=== PATIENT | male | born 1955 | race Two or more races ===

== ENCOUNTER 2021-10-30 15:38 | Inpatient (IN) | payer OTHER ==
[~2021-10-30] VITALS: Ht 172.7 cm; Wt 128.4 kg
--- NOTE | 2021-10-30 15:51 | NUR ---
PTE ALERTA Y ORIENTADO X3 EN AMBULANCIA EN COMPANIA DE ESCOLTA. [facility]. PTE REFIERE QUE PRESENTA PROBLEMAS PARA PODER ORINAR DESDE RAKAN EN LA TARDE. PTE SE RECIBE CON LOMELI CON HAMATURIA CON IRRIGACION CONTINUA. SE COLOCA EN LEFTY CON BARANDAS ELEVADAS.
--- NOTE | 2021-10-30 16:50 | NUR ---
SE LE ORIENTA A PTE SOBRE TRATAMIENTO A SEGUIR, EL REFIERE ENTENDER. SE LE COLECTA MUESTRAS MARTHA ORDEN MEDICA UTILIZANDO MEDIDAS ASEPTICAS.
[2021-11-01] MEDS ORDERED: FLOVENT HFA12 GM (10:53)
[2021-11-01] MEDS ORDERED: PROVENTIL S2 MG/5 ML (10:53)
[2021-11-01] MEDS ORDERED: ATORVASTATIN CA10 MG (10:53)
[2021-11-01] MEDS ORDERED: RENO CAPS SOFTGE1 MG (10:53)
[2021-11-01] MEDS ORDERED: FARXIGA10 MG (10:54)
[2021-11-01] MEDS ORDERED: MUPIROCIN15 GM (10:54)
[2021-11-01] MEDS ORDERED: MONTELUKAST SOD10 MG (10:54)
[2021-11-01] MEDS ORDERED: WIXELA 250-501 EACH (10:54)
[2021-11-01] MEDS ORDERED: ELIQUIS5 MG (10:54)
[2021-11-01] MEDS ORDERED: TAMSULOSIN HCL0.4 MG (10:54)
[2021-11-01] MEDS ORDERED: BREO ELLIPTA 21 EACH (10:54)
[2021-11-01] MEDS ORDERED: FUROSEMIDE40 MG (10:54)
[2021-11-01] MEDS ORDERED: METFORMIN HCL500 M4 (10:54)
== END 2021-11-06 15:52 | disposition home or self-care (01) | DRG 690 ==
LOC: ER 15:38 → ICU-2 17:34 → MEDJ 17:34 → ICU-2 19:24 → ICU 11-01 02:20 → MEDJ 11-02 14:37
PROVIDERS: ADMIT Internal Medicine; ATTEND Internal Medicine
PROC: 30233N1 Transfusion of Nonautologous Red Blood Cells into Peripheral Vein, Percutaneous Approach (ICD-10-PCS; principal; 2021-10-31)
PROC: BW21ZZZ Computerized Tomography (CT Scan) of Abdomen and Pelvis (ICD-10-PCS; 2021-10-31)
PROC: 4A12X4Z Monitoring of Cardiac Electrical Activity, External Approach (ICD-10-PCS; 2021-11-02)
DX: N39.0 Urinary tract infection, site not specified (principal); Z68.41 Body mass index [BMI] 40.0-44.9, adult; R31.0 Gross hematuria; R33.8 Other retention of urine; E87.5 Hyperkalemia; D64.9 Anemia, unspecified; E66.01 Morbid (severe) obesity due to excess calories; E11.65 Type 2 diabetes mellitus with hyperglycemia; Z79.4 Long term (current) use of insulin; I10 Essential (primary) hypertension; Z74.01 Bed confinement status; I25.10 Atherosclerotic heart disease of native coronary artery without angina pectoris